=== PATIENT | female | born 1955 | race Caucasian/White ===

== ENCOUNTER 2021-11-15 22:01 | Emergency (ER) | payer MEDICARE, OTHER ==
[2021-11-16 03:21] LABS: BUN/CREATININE RATIO 24 (0-10)
[2021-11-16 03:32] LABS: HEMOGLOBIN 13.4 gm/dl (12.3-15.3); RED BLOOD COUNT 4.48 M/UL (4.00-5.10); WHITE BLOOD COUNT 11.5 K/UL (4.5-11.0)
[2021-11-16] MEDS ORDERED: IBU600 MG PO (04:57)
[2021-11-16] MEDS ORDERED: VOLTAREN ARTHRI20 GM TP (04:57)
[2021-11-16] MEDS ORDERED: ROBAXIN 750 MG750 MG PO (04:57)
== END 2021-11-16 05:05 | disposition home or self-care (01) ==
LOC: ER1 22:01
PROVIDERS: Student in an Organized Health Care Education/Training Program
DX: R07.89 Other chest pain (principal); I10 Essential (primary) hypertension; J44.9 Chronic obstructive pulmonary disease, unspecified; F17.210 Nicotine dependence, cigarettes, uncomplicated; Z88.5 Allergy status to narcotic agent
CPT/HCPCS: 71045; 80053; 82550; 82553; 84484; 85025; 93005; 96374; 96375; 99285; J1885; J2270